=== PATIENT | female | born 1930 | race Caucasian/White ===

== ENCOUNTER → 2016-12-02 | Outpatient (CLI) | payer MEDICARE, OTHER ==
[~2016-12-02] MED LIST: /PANT40TA; AMIO10TA; ASPI325T; ATEN25TA; COLA100C2; CORD200T; DEMA10TA; ECOT325T5; LACT10SO8; LASI40TA; LEVA250T; LISI20TA5; MACROBID; METO5TAB2; MILKSUS; MS C15TA5; POTA10CA2; TENO25TA; TYL325; VITAMIN D50000 UNT
[2016-12-02 14:36] LABS: FREE T4 1.31 NG/DL (0.76-1.46)
== END ==
LOC: M SMT 09:40
PROVIDERS: ATTEND Internal Medicine Endocrinology, Diabetes & Metabolism
DX: E05.20 Thyrotoxicosis with toxic multinodular goiter without thyrotoxic crisis or storm (principal)

== ENCOUNTER → 2017-01-14 | Outpatient (CLI) | payer MEDICARE, OTHER ==
[2017-01-14 18:17] LABS: CREATININE FOR GFR 2.06 MG/DL (0.55-1.02); GLOMERULAR FILTRATION RATE 24.1 (>32)
== END ==
LOC: M SMT 13:23
PROVIDERS: ATTEND Internal Medicine Gastroenterology
DX: R11.2 Nausea with vomiting, unspecified (principal)

== ENCOUNTER → 2017-01-17 | Outpatient (CLI) | payer MEDICARE, OTHER ==
[~2017-01-17] MED LIST changes: +GASTROGRAFIN SOLUTION 30ML (Q9963) As Ordered ONE; +ISOVUE-370 76% 100ML VIAL (Q9967) As Ordered ONE
--- NOTE | 2017-01-17 12:02 | REP ---
CT ABDOMEN AND PELVIS WITHOUT IV CONTRAST: CT abdomen and pelvis was performed without IV contrast. Oral contrast was administered. Sagittal and coronal reconstruction images are performed. Comparison made with prior of 05/01/2015. There is mild fibroatelectatic change in each lung base. The liver appears grossly unremarkable. The spleen demonstrates tiny calcified granulomas with small peripheral nodule, demonstrating peripheral calcifications in the superior pole of the spleen, measuring 1.3 cm in diameter, unchanged. This probably represents a small stable hemangioma. The adrenal glands appear unremarkable. The pancreas appears grossly unremarkable. 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 There is no hydroureteronephrosis. Large cyst in the left kidney has increased in size once again measuring 9.5 x 7.1 cm, previously 8.0 x 6.3 cm. Cystic structure in the superior left renal pelvis is unchanged. A calcification is again seen at the posterior margin of the dominant cyst. This calcification has slightly enlarged. There are heavy atherosclerotic calcifications of the abdominal aorta without aneurysm. I see no adenopathy. There is no free air or free fluid. No bowel wall thickening or inflammation is seen. There is mild sigmoid diverticulosis without acute diverticulitis. Urinary bladder is not well distended and not well evaluated. There are degenerative changes of the spine. There is a small hiatal hernia. IMPRESSION: Small hiatal hernia. No acute bowel abnormality. Sigmoid diverticulosis. Horseshoe kidney. Mild enlargement of dominant left renal cyst as discussed above as well as a coarse calcification at the inferior margin of the cyst. No other acute findings. Signed by Hardy Stanley MD 01/17/2017 05:00 P
== END ==
LOC: M RAD 09:13
PROVIDERS: ATTEND Internal Medicine Gastroenterology
DX: K44.9 Diaphragmatic hernia without obstruction or gangrene (principal); K57.30 Diverticulosis of large intestine without perforation or abscess without bleeding; N28.1 Cyst of kidney, acquired; R11.2 Nausea with vomiting, unspecified; R10.31 Right lower quadrant pain; R63.4 Abnormal weight loss; Q63.1 Lobulated, fused and horseshoe kidney
CPT/HCPCS: 74176; Q9963

== ENCOUNTER → 2017-04-16 | Outpatient (CLI) | payer MEDICARE, OTHER ==
[~2017-04-16] MED LIST changes: -GASTROGRAFIN SOLUTION 30ML (Q9963) As Ordered ONE; -ISOVUE-370 76% 100ML VIAL (Q9967) As Ordered ONE
[2017-04-16 15:50] LABS: ALBUMIN 3.8 GM/DL (3.2-5.2); ALBUMIN/GLOBULIN RATIO 1.15 (1.00-1.93); BILIRUBIN,TOTAL 0.9 MG/DL (0.2-1.0); CALCIUM LEVEL 8.9 MG/DL (8.8-10.2); CREATININE FOR GFR 1.88 MG/DL (0.55-1.02); GLOMERULAR FILTRATION RATE 26.8 (>32); MAGNESIUM LEVEL 2.2 MG/DL (1.8-2.4); POTASSIUM SERUM 3.9 MEQ/L (3.5-5.1); TOTAL PROTEIN 7.1 GM/DL (6.4-8.2)
--- NOTE | 2017-04-22 10:38 | REP ---
PA and lateral chest: Comparison is 08/21/2016. The studies performed on 04/16/2017 represent to me for the first time today. The lung garrett are clear. Cardiac size is borderline enlarged, unchanged. There is a dual-chamber pacemaker, unchanged. The ricarda, mediastinum, bony thorax are unremarkable and unchanged. There are surgical clips in the abdominal right upper quadrant, unchanged. Impression: Borderline cardiomegaly. Otherwise, negative chest. No interval change. Signed by Hardy Fan MD 04/22/2017 10:30 A
== END ==
LOC: M SMT 10:19
PROVIDERS: ATTEND Physician Assistant
DX: I48.0 Paroxysmal atrial fibrillation (principal); I50.32 Chronic diastolic (congestive) heart failure

== ENCOUNTER → 2017-06-17 | Outpatient (CLI) | payer MEDICARE, OTHER ==
[2017-06-17 14:58] LABS: FREE T4 1.48 NG/DL (0.76-1.46)
== END ==
LOC: M SMT 08:53
PROVIDERS: ATTEND Physician Assistant Medical
DX: E05.20 Thyrotoxicosis with toxic multinodular goiter without thyrotoxic crisis or storm (principal)

== ENCOUNTER → 2017-10-21 | Outpatient (CLI) | payer MEDICARE, OTHER ==
[2017-10-21 13:23] LABS: ALBUMIN 3.2 GM/DL (3.2-5.2); ALBUMIN/GLOBULIN RATIO 0.86 (1.00-1.93); BILIRUBIN,DIRECT 0.2 MG/DL (0.0-0.2); BILIRUBIN,TOTAL 0.7 MG/DL (0.2-1.0); MAGNESIUM LEVEL 2.2 MG/DL (1.8-2.4); TOTAL PROTEIN 6.9 GM/DL (6.4-8.2)
--- NOTE | 2017-10-21 15:06 | REP ---
Chest x-ray: Two views. History: Paroxysmal atrial fibrillation. Comparison study April 16, 2017 and August 21, 2016. Findings: A bipolar pacemaker is again noted in the right heart via the left side. There are clips in right upper quadrant of the abdomen. Mild cardiomegaly is observed. Cardiothoracic ratio today is 14.2 cm over 28.4 cm. There is evidence of left atrial enlargement. The aorta is calcific and somewhat tortuous. The pleural angles are sharp. There is no evidence of pleural effusion or pulmonary edema. Minimal cephalization of the pulmonary vasculature is seen. There are degenerative changes in the thoracic spine as before. Impression: Cardiomegaly and mild cephalization. Pacemaker in place. Otherwise no acute disease. Signed by Dilan Richards MD 10/21/2017 04:01 P
== END ==
LOC: M SMT 10:23
PROVIDERS: ATTEND Physician Assistant
DX: I48.0 Paroxysmal atrial fibrillation (principal)